=== PATIENT | male | born 1955 | race Caucasian/White ===

== ENCOUNTER 2020-01-26 08:41 | Outpatient (CLI) | payer OTHER, SELFPAY ==
[2020-01-26 09:09] LABS: Hemoglobin A1C 5.7 % (<5.7)
[2020-01-26 09:18] LABS: Blood Urea Nitrogen 22 mg/dL (9-20); Calcium 9.2 mg/dL (8.4-10.2); Carbon Dioxide 31 mmol/L (22-30); Chloride 106 mmol/L (98-107); Estimated Glomerular Filt Rate > 60; Glucose 101 mg/dL (75-110); Potassium 4.7 mmol/L (3.4-5.0); Sodium 140 mmol/L (137-145)
== END 2020-01-26 08:42 | disposition home or self-care (01) ==
PROVIDERS: PCP Family Medicine; Visit Provider Family Medicine
DX: R73.01 Impaired fasting glucose (principal)
CPT/HCPCS: 36415; 80048; 83036

== ENCOUNTER 2020-07-14 08:57 | Outpatient (CLI) | payer MEDICARE, SELFPAY ==
[2020-07-14 09:38] LABS: Add Urine Microscopic? NO; Appearance Urine Clear (Clear); Bilirubin Urine Negative (Negative); Blood Urine Negative (Negative); Color Urine Yellow (Yellow); Glucose Urine UA Negative (Negative); Ketones Urine Negative (Negative); Leukocyte Esterase Ur Negative LEU/UL (NEGATIVE); Nitrate Urine Negative (Negative); Protein Urine Negative (Negative); Urobilinogen Urine Negative mg/dL (<2.0)
[2020-07-14 09:46] LABS: Hemoglobin A1C 5.4 % (<5.7)
[2020-07-14 09:47] LABS: Alanine Aminotransferase 21 U/L (4-50); Albumin Level 4.1 g/dL (3.5-5.1); Alkaline Phosphatase 58 U/L (38-126); Anion Gap 5 mmol/L (8-16); Aspartate Amino Transferase 26 U/L (17-59); Bilirubin,Total 0.3 mg/dL (0.2-1.3); Blood Urea Nitrogen 30 mg/dL (9-20); Calcium 9.2 mg/dL (8.4-10.2); Carbon Dioxide 32 mmol/L (22-30); Chloride 106 mmol/L (98-107); Cholesterol 127 mg/dL (0-200); Estimated Glomerular Filt Rate > 60; Glucose 103 mg/dL (75-110); HDL Direct 43 mg/dL; Hemoglobin 15.4 g/dL (14.0-18.0); Mean Corpuscular HGB Conc 32.8 g/dl (32-36); Mean Corpuscular Hemoglobin 30.3 pg (26-34); Mean Corpuscular Volume 92.5 fl (80-100); Mean Platelet Volume 10.5 fl (7.4-10.4); Platelet Count Result 224 k/mm3 (150-375); Potassium 4.3 mmol/L (3.4-5.0); Red Blood Count 5.08 M/mm3 (4.6-6.20); Red Cell Distribution Width 13.8 % (11.5-14.5); Sodium 143 mmol/L (137-145); Triglycerides 50 mg/dL (<150)
[2020-07-14 09:59] LABS: LDL Cholesterol Direct 68 mg/dL
[2020-07-14 10:18] LABS: Prostate Specific Antigen 3.5 ng/mL (< OR = 4.0)
== END 2020-07-14 08:58 | disposition home or self-care (01) ==
PROVIDERS: PCP Family Medicine; Visit Provider Family Medicine
DX: D51.9 Vitamin B12 deficiency anemia, unspecified (principal); R73.01 Impaired fasting glucose; E78.2 Mixed hyperlipidemia; R35.1 Nocturia; I10 Essential (primary) hypertension
CPT/HCPCS: 36415; 80048; 80061; 80076; 81003; 82607; 83036; 84153; 84443; 85027

== ENCOUNTER 2020-08-15 13:07 | Outpatient (CLI) | payer MEDICARE, SELFPAY ==
--- NOTE | ~2020-08-15 | MMUS_ITS ---
EXAMINATION: MM diagnostic mammo unilat RT, US breast RT limited HISTORY: Palpable right breast mass. TECHNIQUE: Additional 3-D tomosynthesis images of the right breast were performed and synthetic 2-D i mages were generated. CAD analysis was submitted and interpreted. High resolution Limited right breas t ultrasound was performed. COMPARISON: None BREAST PARENCHYMAL COMPOSITION: Breast composed of scattered areas of fibroglandular density. FINDINGS: MAMMOGRAPHIC FINDINGS: The right breast contains a mass in the lower inner quadrant near the chest wall measuring approximat divine 3.4 cm greatest dimension. No architectural distortion or suspicious calcifications. ULTRASOUND: Targeted right breast ultrasound: At 4:00, 6 cm from the nipple in the area of palpable concern there is a circumscribed oval slightly hyperechoic mass measuring 3.2 x 2.6 x 1 cm with mixed posterior at tenuation. No significant internal vascularity. IMPRESSION: 1. Oval hyperechoic mass of the right breast in the area of palpable concern measuring up to 3.2 cm. 2. Ultrasound-guided right breast biopsy recommended. BI-RADS category 4, suspicious findings. Reviewed, dictated and finalized at location A. CORE OPERATOR IMPRESSION: 1. Oval hyperechoic mass of the right breast in the area of palpable concern me asuring up to 3.2 cm. 2. Ultrasound-guided right breast biopsy recommended. BI-RADS category 4, suspicious findings.
== END 2020-08-15 13:08 | disposition home or self-care (01) ==
PROVIDERS: PCP Family Medicine; Visit Provider Family Medicine
DX: N63.15 Unspecified lump in the right breast, overlapping quadrants (principal); R92.8 Other abnormal and inconclusive findings on diagnostic imaging of breast
CPT/HCPCS: 76642; 77065

== ENCOUNTER 2020-08-24 09:26 | Outpatient (CLI) | payer MEDICARE, SELFPAY ==
--- NOTE | ~2020-08-24 | US_ITS ---
EXAMINATION: US biopsy st neck thorax DATE: 08/24/2020 10:26 INDICATION: Right chest wall mass TECHNIQUE: The procedure including the risks and benefits was discussed with the patient. Risks discu ssed included bleeding and infection. The patient understood the risks and agreed to proceed. A timeo ut was performed. The skin overlying the right chest was prepped and draped in usual sterile fashion. Anesthetic was administered with 1% lidocaine subcutaneously. An 18 gauge core biopsy needle was t hen used to obtain three core biopsy specimens under continuous sonographic guidance. The entry site was cleaned and dressed. There were no immediate complications. FINDINGS: Ultrasound images demonstrate the needle in right chest wall mass. IMPRESSION: 1. Successful ultrasound-guided right chest wall mass biopsy. Reviewed, dictated and finalized at location A. MOTIVE PAINT TECHNICIAN
== END 2020-08-24 09:27 | disposition home or self-care (01) ==
PROVIDERS: PCP Family Medicine; Visit Provider Family Medicine
DX: N63.15 Unspecified lump in the right breast, overlapping quadrants (principal)
CPT/HCPCS: 20206; 76942; 88305

== ENCOUNTER 2021-07-24 08:41 | Outpatient (CLI) | payer MEDICARE, SELFPAY ==
[2021-07-24 09:23] LABS: Hematocrit 47.3 % (42.0-52.0); Hemoglobin 15.5 g/dL (14.0-18.0); Mean Corpuscular HGB Conc 32.8 g/dl (32-36); Mean Corpuscular Hemoglobin 30.8 pg (26-34); Mean Corpuscular Volume 93.8 fl (80-100); Mean Platelet Volume 9.8 fl (7.4-10.4); Platelet Count Result 222 k/mm3 (150-375); Red Blood Count 5.04 M/mm3 (4.6-6.20); Red Cell Distribution Width 14.6 % (11.5-14.5); White Blood Count 8.3 K/mm3 (4.5-10.0)
[2021-07-24 09:26] LABS: Add Urine Microscopic? NO; Appearance Urine Clear (Clear); Bilirubin Urine Negative (Negative); Blood Urine Negative (Negative); Color Urine Yellow (Yellow); Glucose Urine UA Negative (Negative); Ketones Urine Negative (Negative); Leukocyte Esterase Ur Negative LEU/UL (NEGATIVE); Nitrate Urine Negative (Negative); Protein Urine Negative (Negative); Specific Grav Ur 1.026 (1.001-1.035); Urobilinogen Urine Negative mg/dL (<2.0)
[2021-07-24 09:31] LABS: Hemoglobin A1C 5.5 % (<5.7)
[2021-07-24 09:33] LABS: Alanine Aminotransferase 24 U/L (4-50); Albumin Level 4.3 g/dL (3.5-5.1); Alkaline Phosphatase 60 U/L (38-126); Anion Gap 5 mmol/L (8-16); Aspartate Amino Transferase 28 U/L (17-59); Bilirubin,Total 0.3 mg/dL (0.2-1.3); Blood Urea Nitrogen 29 mg/dL (9-20); Calcium 9.6 mg/dL (8.4-10.2); Carbon Dioxide 29 mmol/L (22-30); Chloride 104 mmol/L (98-107); Cholesterol 151 mg/dL (0-200); Estimated Glomerular Filt Rate > 60; Glucose 110 mg/dL (65-110); HDL Direct 52 mg/dL; Potassium 4.2 mmol/L (3.4-5.0); Sodium 138 mmol/L (137-145); Triglycerides 62 mg/dL (<150)
[2021-07-24 09:46] LABS: LDL Cholesterol Direct 83 mg/dL
[2021-07-24 10:03] LABS: Prostate Specific Antigen 4.5 ng/mL (< OR = 4.0)
== END 2021-07-24 08:42 | disposition home or self-care (01) ==
PROVIDERS: PCP Family Medicine; Visit Provider Family Medicine
DX: E78.2 Mixed hyperlipidemia (principal); R35.1 Nocturia; R73.01 Impaired fasting glucose; D51.9 Vitamin B12 deficiency anemia, unspecified
CPT/HCPCS: 36415; 80048; 80061; 80076; 81003; 82607; 83036; 84153; 84443; 85027

== ENCOUNTER 2022-01-28 08:42 | Outpatient (CLI) | payer MEDICARE, SELFPAY ==
[2022-01-28 09:22] LABS: Anion Gap 3 mmol/L (8-16); Blood Urea Nitrogen 27 mg/dL (9-20); Calcium 8.8 mg/dL (8.4-10.2); Carbon Dioxide 29 mmol/L (22-30); Chloride 109 mmol/L (98-107); Estimated Glomerular Filt Rate > 60; Glucose 110 mg/dL (65-110); Potassium 4.4 mmol/L (3.4-5.0); Sodium 141 mmol/L (137-145)
[2022-01-30 16:39] LABS: PSA, Free 1.28 ng/mL; PSA, Total 4.3 ng/mL (<=4.0); Percent Free Prostate Spec Ag 30 % (>25)
== END 2022-01-28 08:43 | disposition home or self-care (01) ==
LOC: ANHLAB 08:47
PROVIDERS: PCP Family Medicine; Visit Provider Nurse Practitioner Family
DX: R97.20 Elevated prostate specific antigen [PSA] (principal); I10 Essential (primary) hypertension
CPT/HCPCS: 36415; 80048; 84153; 84154

== ENCOUNTER 2022-07-24 08:31 | Outpatient (CLI) | payer MEDICARE, SELFPAY ==
[2022-07-24 09:31] LABS: Hematocrit 48.2 % (42.0-52.0); Hemoglobin 15.5 g/dL (14.0-18.0); Mean Corpuscular HGB Conc 32.2 g/dl (32-36); Mean Corpuscular Hemoglobin 30.3 pg (26-34); Mean Corpuscular Volume 94.3 fl (80-100); Mean Platelet Volume 10.2 fl (7.4-10.4); Platelet Count Result 224 k/mm3 (150-375); Red Blood Count 5.11 M/mm3 (4.6-6.20); Red Cell Distribution Width 14.4 % (11.5-14.5); White Blood Count 7.2 K/mm3 (4.5-10.0)
[2022-07-24 09:42] LABS: Alanine Aminotransferase 25 U/L (6-50); Albumin Level 4.3 g/dL (3.5-5.1); Alkaline Phosphatase 69 U/L (38-126); Anion Gap 6 mmol/L (8-16); Aspartate Amino Transferase 29 U/L (17-59); Bilirubin,Total 0.4 mg/dL (0.2-1.3); Blood Urea Nitrogen 25 mg/dL (9-20); Carbon Dioxide 30 mmol/L (22-30); Chloride 107 mmol/L (98-107); Cholesterol 136 mg/dL (0-200); Estimated Glomerular Filt Rate > 60; Glucose 102 mg/dL (65-110); HDL Direct 47 mg/dL; Potassium 4.2 mmol/L (3.4-5.0); Sodium 143 mmol/L (137-145); Triglycerides 68 mg/dL (<150)
[2022-07-24 09:50] LABS: Appearance Urine Clear (Clear); Bilirubin Urine Negative (Negative); Blood Urine Negative (Negative); Color Urine Yellow (Yellow); Glucose Urine UA Negative (Negative); Ketones Urine Negative (Negative); Leukocyte Esterase Ur Negative LEU/UL (NEGATIVE); Nitrate Urine Negative (Negative); Protein Urine Negative (Negative); Urobilinogen Urine 0.2 mg/dL (<2.0)
[2022-07-24 09:51] LABS: Hemoglobin A1C 5.7 % (<5.7)
[2022-07-24 09:53] LABS: LDL Cholesterol Direct 65 mg/dL
[2022-07-24 09:54] LABS: Add Urine Microscopic? NO
== END 2022-07-24 08:32 | disposition home or self-care (01) ==
LOC: ANHLAB 08:43
PROVIDERS: PCP Family Medicine; Visit Provider Family Medicine
DX: R73.01 Impaired fasting glucose (principal); E78.2 Mixed hyperlipidemia; D51.9 Vitamin B12 deficiency anemia, unspecified
CPT/HCPCS: 36415; 80048; 80061; 80076; 81003; 82607; 83036; 84443; 85027

== ENCOUNTER 2023-01-15 09:18 | Outpatient (CLI) | payer MEDICARE, SELFPAY ==
--- NOTE | 2023-01-15 11:00 | NEURO_ITS ---
Impression: # Complains of nocturnal paresthesia and numbness in right hand. # Right moderate Carpal Tunnel Syndrome. # Mildly abnormal needle/EMG exam. Nerve Conduction Studies Anti Sensory Summary Table Stim Site NR Peak (ms) P-T Amp (?V) Site1 Site2 Delta-P (ms) Dist (cm) Shawn (m/s) Right Median Anti Sensory (2-3nd Digit) Wrist 5.5 7.5 Wrist 2-3nd Digit 5.5 14.0 25 Wrist 6.6 11.2 Wrist 2-3nd Digit 5.5 14.0 25 Right Radial Anti Sensory (Base 1st Digit) Wrist 2.7 8.7 Wrist Base 1st Digit 2.7 0.0 Right Ulnar Anti Sensory (5th Digit) Wrist 2.8 37.9 Wrist 5th Digit 2.8 14.0 50 Motor Summary Table Stim Site NR Onset (ms) O-P Amp (mV) Site1 Site2 Delta-0 (ms) Dist (cm) Shawn (m/s) Right Median Motor (Abd Poll Brev) Wrist 5.4 0.6 Elbow Wrist 5.9 28.0 47 Elbow 11.3 0.7 Right Ulnar Motor (Abd Dig Minimi) Wrist 2.3 4.7 A Elbow Wrist 6.6 31.0 47 A Elbow 8.9 3.2 B Elbow Wrist 4.5 23.0 51 B Elbow 6.8 3.0 F Wave Studies NR F-Lat (ms) L-R F-Lat (ms) Right Median (Mrkrs) (Abd Poll Brev) 29.53 Right Ulnar (Mrkrs) (Abd Dig Min) 30.22 EMG Side Muscle Nerve Root Ins Act Fibs Amp Dur Recrt Comment Right 1stDorInt Ulnar C8-T1 Nml Nml Nml Nml Nml Right Ext Indicis Radial (Post Int) C7-8 Nml Nml Nml Nml Nml Right Ext Digitorum Radial (Post Int) C7-8 Nml Nml Nml Nml Nml Right BrachioRad Radial C5-6 Nml Nml Nml Nml Nml Right PronatorTeres Median C6-7 Nml Nml Nml Nml Nml Right Abd Poll Brev Median C8-T1 Nml Nml Nml >12ms Reduced Right ABD Dig Min Ulnar C8-T1 Nml Nml Nml Nml Nml MTDD
== END 2023-01-15 09:19 | disposition home or self-care (01) ==
LOC: ANHNEURO 09:19
PROVIDERS: PCP Family Medicine; Visit Provider Nurse Practitioner Family
DX: G56.01 Carpal tunnel syndrome, right upper limb (principal)
CPT/HCPCS: 95886; 95909

== ENCOUNTER 2023-02-27 03:26 | Day surgery (SDC) | payer MEDICARE, SELFPAY ==
[2023-02-21 08:41] VITALS: BMI 25.0
--- NOTE | 2023-02-21 08:51 | PC.NURSE ---
Report to the Outpatient Waiting Room, entrance under the green pavilion located off [facility], at time _12:30PM on date ___02/27/23____. Planned Procedure Time: __1:30PM . LOCAL ANESTHESIA Time changes happen often and if your time is changed the preop area will call you the afternoon before. - You and your visitor will be asked to self-screen and do not enter if you have any COVID symptoms. - A mask is optional within the hospital at this time. Patients may have LIGHT BREAKFAST Take the following medications with a SIP of water the morning of surgery: MORNING MEDICATION DO NOT STOP ANY OF YOUR OTHER PRESCRIPTION MEDICATIONS PRIOR TO SURGERY ?EXCEPT THE FOLLOWING Medications to discontinue per physician NONE Date to take last dose Please no make-up, nail kyrgyz, hairspray, perfume, deodorant, or body powder the day of surgery. No jewelry (including any body piercings) or valuables the day of surgery, leave them at home. Please take a shower or bath the night before, or the morning of, surgery with an antibacterial soap. Wear comfortable, loose fitting clothing. Children are encouraged to wear pajamas. - Jewelry must be removed prior to entering the operating room. Rings and piercings that are not removed may be cut off. - The hospital will not accept responsibility for valuables. - Please leave all valuables, including medications, at home the day of surgery. If you are going home after surgery, a licensed inventory associate and driver OR YOU CAN DRIVE SELF HOME. care provider for at least 24 hours after your discharge time. Follow any additional instructions given to you from your surgeon. If you or anyone in your household have experienced Covid symptoms in the past week, please notify your surgeon or the nurse liaison at the phone number below for possible testing. Telephone instructions given to ___PATIENT and asked if any additional questions and then verbalized understanding. Patient advised to call surgeon office or pre surgery nurse liaison [phone] if any additional questions.
[2023-02-27 12:47] VITALS: BP 131/75; PULSE 57; RESP 14; TEMP 36.1; O2SAT 99
--- NOTE | 2023-02-27 12:59 | WPDHPUPDATE1 ---
History and Physical Update Update Date/Time: 02/27/23 12:59 History and Physical has been reviewed, including an updated exam of the patient. There are NO changes in the patient's condition. Risks, benefits, and alternatives have been discussed and questions answered. Patient agrees to proceed with procedure.
[2023-02-27 13:05] VITALS: BP 143/81; PULSE 57; RESP 16; O2SAT 95
[2023-02-27 13:10] VITALS: BP 124/62; PULSE 65; RESP 16; O2SAT 97
[2023-02-27 13:20] VITALS: BP 139/78; PULSE 70; RESP 16; O2SAT 96
[2023-02-27 13:34] VITALS: BP 124/66; PULSE 56; RESP 12; O2SAT 99
--- NOTE | 2023-02-27 13:35 | W.PM.PROC2 ---
Procedure Note - Detailed Date of Procedure 02/27/23 Pre-op Diagnosis Skin cyst of the back Post-op Diagnosis Same Procedure Performed Excision 2.5 cm inclusion cyst of the back, no margin. 7 cm layered closure Surgeon Boris Way MD Anesthesia Local (0.25% Marcaine with epinephrine) Indications Patient has enlarging flattened subcutaneous nodule in the left mid back. Clinically it is suspicious for a skin cyst. He is taken to surgery now for excision Findings Showed an epithelial inclusion cyst 2.5 cm in largest diameter. Description of Procedure Patient was checked in the preoperative holding area. The area of the cyst was marked on the skin. He was taken to surgery and placed in prone position. The area on his back where the cyst was located was prepped and draped. A 7 cm ellipse was drawn on the skin in a transverse orientation. Local was then infiltrated in the area of the proposed incision as well as all around the cyst itself. Incision was made and dissection was carried down through the skin on each end. We then carefully dissected back towards the cyst. The skin overlying the cyst was carefully dissected until the cyst it was found. We then dissected the skin and subcutaneous off the cyst without entering the cyst itself. We dissected the cyst completely free of any overlying skin and the surrounding subcutaneous tissue. It extended down to the muscular fascia of the back. It was completely excised without entering the cyst capsule. The cyst was measured. The length of the wound to close was measured. Sizes are as noted above. Additional local was infiltrated into the depths of the wound. Cautery was used for hemostasis. The deep layer of the wound was then closed with subcutaneous interrupted 3-0 Vicryl suture. Some subcuticular 4-0 Vicryl sutures were then placed. The skin was closed with a running 4-0 Monocryl skin suture. The wound was dressed with Exofin surgical adhesive. Patient was taken to outpatient surgery in good condition. Sponge and needle counts were correct x2. Estimated Blood Loss -5 Drains No Packing No Pathology Yes (Skin cyst of the back) Complications No immediate complications Condition Stable Disposition Same day [facility] Billing Surgery - Charge Forward: Surgery Billing (Excision 2.5 cm skin cyst of the back, no margins. 7 cm layered closure)
== END 2023-02-27 13:50 | disposition home or self-care (01) ==
PROVIDERS: PCP Family Medicine; Visit Provider Surgery
PROC: (CPT 11403; principal; 2023-02-27 13:00)
DX: L72.0 Epidermal cyst (principal)
CPT/HCPCS: 11403; 12032; 88304

== ENCOUNTER 2023-08-25 08:05 | Outpatient (CLI) | payer MEDICARE, SELFPAY ==
[2023-08-25 08:26] LABS: Basophils Percent Auto 0.5 % (0.2-1.2); Eosinophils Absolute Auto 0.3 K/mm3 (0-0.3); Eosinophils Percent Auto 3.3 % (0-4.4); Hematocrit 50.4 % (42.0-52.0); Hemoglobin 15.9 g/dL (14.0-18.0); Immature Granulocyte Absolute 0.03 K/mm3 (0.00-0.031); Immature Granulocyte Percent A 0.4 % (0-0.5); Lymphocytes Percent Auto 33.9 % (18.3-44.2); Mean Corpuscular HGB Conc 31.5 g/dl (32-36); Mean Corpuscular Volume 95.1 fl (80-100); Mean Platelet Volume 10.2 fl (7.4-10.4); Monocytes Percent Auto 12.2 % (2.6-8.5); Neutrophils Absolute Auto 4.1 K/mm3 (1.3-6.7); Neutrophils Percent Auto 49.7 % (45.5-73.1); Platelet Count Result 223 k/mm3 (150-375); Red Cell Distribution Width 14.3 % (11.5-14.5); White Blood Count 8.3 K/mm3 (4.5-10.0)
[2023-08-25 08:30] LABS: Add Urine Microscopic? NO; Appearance Urine Clear (Clear); Bilirubin Urine Negative (Negative); Blood Urine Negative (Negative); Color Urine Yellow (Yellow); Glucose Urine UA Negative (Negative); Ketones Urine Negative (Negative); Leukocyte Esterase Ur Negative LEU/UL (NEGATIVE); Nitrate Urine Negative (Negative); Protein Urine Negative (Negative); Urobilinogen Urine 0.2 mg/dL (<2.0); pH Urine 6.5 (5.0-9.0)
[2023-08-25 11:14] LABS: Alanine Aminotransferase 25 U/L (6-50); Alkaline Phosphatase 63 U/L (38-126); Anion Gap 5 mmol/L (8-16); Aspartate Amino Transferase 30 U/L (17-59); Bilirubin,Total 0.6 mg/dL (0.2-1.3); Blood Urea Nitrogen 23 mg/dL (9-20); Calcium 9.6 mg/dL (8.4-10.2); Carbon Dioxide 30 mmol/L (22-30); Chloride 107 mmol/L (98-107); Cholesterol 146 mg/dL (0-200); Estimated Glomerular Filt Rate > 60; Glucose 102 mg/dL (65-110); HDL Direct 42 mg/dL; Potassium 4.6 mmol/L (3.4-5.0); Sodium 142 mmol/L (137-145); Triglycerides 65 mg/dL (<150)
[2023-08-25 11:25] LABS: LDL Cholesterol Direct 81 mg/dL
[2023-08-25 11:48] LABS: Hemoglobin A1C 5.8 % (<5.7)
[2023-08-28 22:23] LABS: PSA, Free 1.33 ng/mL; Percent Free Prostate Spec Ag 27 % (>25)
== END 2023-08-25 08:06 | disposition home or self-care (01) ==
LOC: ANHLAB 08:07
PROVIDERS: PCP Family Medicine; Visit Provider Family Medicine
DX: E78.2 Mixed hyperlipidemia (principal); R73.01 Impaired fasting glucose; R97.20 Elevated prostate specific antigen [PSA]; D51.9 Vitamin B12 deficiency anemia, unspecified
CPT/HCPCS: 36415; 80048; 80061; 80076; 81003; 82607; 83036; 84153; 84154; 84443; 85025

== ENCOUNTER 2024-03-01 07:53 | Outpatient (CLI) | payer MEDICARE, SELFPAY ==
[2024-03-01 08:59] LABS: Alanine Aminotransferase 17 U/L (6-50); Albumin Level 3.9 g/dL (3.5-5.1); Alkaline Phosphatase 58 U/L (38-126); Anion Gap 5 mmol/L (4-12); Aspartate Amino Transferase 24 U/L (17-59); Bilirubin,Total 0.3 mg/dL (0.2-1.3); Blood Urea Nitrogen 30 mg/dL (9-20); Carbon Dioxide 31 mmol/L (22-30); Chloride 106 mmol/L (98-107); Cholesterol 122 mg/dL (0-200); Estimated Glomerular Filt Rate > 60; Glucose 94 mg/dL (65-110); HDL Direct 42 mg/dL; Potassium 4.1 mmol/L (3.4-5.0); Sodium 142 mmol/L (137-145); Triglycerides 108 mg/dL (<150)
[2024-03-01 09:10] LABS: LDL Cholesterol Direct 67 mg/dL
[2024-03-01 09:23] LABS: Hemoglobin A1C 5.9 % (<5.7)
[2024-03-03 15:08] LABS: PSA, Free 1.7 ng/mL; Percent Free Prostate Spec Ag 24 % (calc) (>25)
== END 2024-03-01 07:54 | disposition home or self-care (01) ==
LOC: ANHLAB 07:56
PROVIDERS: PCP Family Medicine; Visit Provider Family Medicine
DX: R73.01 Impaired fasting glucose (principal); R97.20 Elevated prostate specific antigen [PSA]; E78.2 Mixed hyperlipidemia
CPT/HCPCS: 36415; 80048; 80061; 80076; 83036; 84153; 84154

== ENCOUNTER → 2024-03-09 11:00 | Outpatient (CLI) | payer MEDICARE, SELFPAY ==
--- NOTE | ~2024-03-09 | XR_ITS ---
EXAM: XR lumbar spine min 4V DATE: 03/09/2024 11:19 HISTORY: M54.41-Lumbago with sciatica,right side,worsening,no injury . COMPARISON: None available. FINDINGS: 5 nonrib-bearing lumbar-type vertebral bodies. Pedicles intact. Trace retrolistheses at L2 -3 and L3-4. Minimal anterolisthesis at L4-5. Mild anterior wedge deformity of the thoracolumbar junc tion. Multilevel disc space narrowing and marginal osteophytosis, moderate at L2-3 and L3-4. Multilev el moderate facet arthropathy. Unilateral pars defects suspected on the left at L4-5. No fracture or dislocation. IMPRESSION: Multilevel grade 1 listheses. Presumably physiologic anterior wedging at the lumbar junct ion. Suspected unilateral left L4-5 pars defect. Multilevel degenerative disc disease and facet arthr opathy. Reviewed, dictated and finalized at location K. IMPRESSION: Multilevel grade 1 listheses. Presumably physiologic anterior wedgi ng at the lumbar junction. Suspected unilateral left L4-5 pars defect. Multilev el degenerative disc disease and facet arthropathy.
== END ==
PROVIDERS: PCP Family Medicine; Visit Provider Family Medicine
DX: M54.41 Lumbago with sciatica, right side (principal); G89.29 Other chronic pain; M51.36 Other intervertebral disc degeneration, lumbar region
CPT/HCPCS: 72110

== ENCOUNTER 2024-05-12 06:23 | Day surgery (SDC) | payer MEDICARE, SELFPAY ==
[2024-03-25 12:19] VITALS: BMI 27.5
[2024-04-26 10:12] VITALS: BMI 25.9
[2024-05-12 06:43] VITALS: BP 137/97; PULSE 84; RESP 16; TEMP 36.8; O2SAT 98
--- NOTE | 2024-05-12 07:08 | PM.HPGS ---
History of Present Illness History of Present Illness Consent: Risks, benefits, and alternatives have been discussed and questions answered. Patient agrees to proceed with procedure. Chief complaint: History of colon polyp Narrative: Oracio Santos is a 68 year old male presents for colonoscopy. Patient has a history of colonoscopy in 2016. A very small diminutive polyp was identified but no histology was able to be obtain. His father had multiple health problems but that his father did not have colon cancer to his knowledge. Dense today for follow-up colonoscopy. He reports his weight appetite and bowel movements are normal. Past history is significant for some issues with abnormal PSA and prostatic enlargement which are currently being evaluated. Review of Systems Review of Systems: All systems reviewed & are unremarkable except as noted in HPI and below PMFSH Past Medical History Medical History (Updated 03/31/24 @ 12:59 by Sonny Roberts MD) Abnormal fasting glucose Fasting glucose 110 on 01/28/2022. Glucose 102 with hemoglobin A1c 5.7 on 07/24/2022. Fasting glucose 96 with hemoglobin A1c 5.6 on 01/21/2023. Fasting glucose 102 with hemoglobin A1c 5.8 on 08/25/2023. glucose 94 with hemoglobin A1c 5.9 on 03/01/2024. Abscess and cellulitis of gluteal region At low risk for fall BMI 27.0-27.9,adult BMI 28.0-28.9,adult Breast lump on right side at 9 o'clock position Carpal tunnel syndrome Carpal tunnel syndrome of right wrist Carpal tunnel release 04/01/2023. EMG and nerve conduction study on 01/15/2023 reveals moderate carpal tunnel syndrome on the right. Chronic bilateral low back pain without sciatica Chronic low back pain with right-sided sciatica x-ray lumbar spine 03/09/2024 with multilevel degenerative changes. Colon cancer screening Colonoscopy 09/27/2005. Colonoscopy 10/16/2015 with benign polyps. Elevated PSA PSA normal at 3.5 on 07/14/2020, PSA elevated at 4.5 on 07/24/2021. PSA 4.3 on 01/28/2022. PSA 5.3 on 01/21/2023. PSA 5.0 with 27% free on 08/25/2023. PSA 7.0 with free PSA 24% on 03/01/2024. Encounter for prostate cancer screening Encounter for screening for malignant neoplasm of prostate Encounter for surgical aftercare following surgery on the skin and subcutaneous tissue Epidermal cyst Excised 02/27/2023 Epidermoid cyst of skin of chest Family history of cancer in father colonoscopy 09/27/2005. Benign polyps 10/16/2015. Insomnia Mass of chest wall, right Medial epicondylitis, right elbow Neoplasm of skin of cheek 0.6 cm pearly lesion left maxillary area of the face. nodular basal cell carcinoma excised 04/16/2023. Nocturia Overweight (BMI 25.0-29.9) Sebaceous cyst (~2021) 3 cm sebaceous cyst midline upper back . Excised 02/27/2023. Subcutaneous mass of back Vitamin B12 deficiency anemia level normal at 609 with hemoglobin 15.5 on 07/24/2021. B12 level normal at 584 with hemoglobin 15.5 on 07/24/2022. Level normal at 934 with hemoglobin 15.9 on 08/25/2023. Surgical History Surgical History H/O excision of epidermal inclusion cyst 02/27/2023 - Excision 2.5 cm inclusion cyst of the back, no margin. 7 cm layered closure H/O excision of mass 09/11/20 chest mass History of benign breast biopsy History of colonoscopy Lipoma of shoulder removal 2014 Family History Family History Sibling Hypertension Father Carcinoma of colon Hypertension Family history of cardiovascular disease, Onset Age: 84 Mother Family history of osteoarthritis Patient's mother is , Onset Age: 81 Family history of cardiovascular disease Social History Social History Smoking status: Never smoker Alcohol intake: current Drinks per week: 6 Alcohol use details: beer Substance use: never Substance use type:
[2024-05-12] MEDS: LACTATED RINGERS 1,000 ML 150 ML IV CONT (07:17)
--- NOTE | 2024-05-12 07:50 | WPDANESEPPF ---
Anes - Initial Pre Proc Eval Procedure: Operation Date: 05/12/24 08:00 Proposed Procedures p Diagnostic Colonoscopy - Teofilo Pino MD Date/Time: 05/12/24 07:50 Surgeon: Teofilo Pino MD Pre Op Diagnosis: History of colon polyp Patient Data Age: 68 Gender: M Height: 1.78 m Weight: 80.15 kg Last Vital Signs Temp 36.8 C 05/12/24 06:43 Pulse 84 05/12/24 06:43 Resp 16 05/12/24 06:43 BP 137/97 H 05/12/24 06:43 Pulse Ox 98 05/12/24 06:43 O2 Del Method Room Air 05/12/24 06:43 Allergies Allergy/AdvReac Type Severity Reaction Status Date / Time No Known Allergies Allergy Verified 05/12/24 06:40 Home Medications Medication Instructions Recorded Confirmed Type Van Vleet's wort 300 mg capsule 300 mg PO DAILY 02/21/23 05/12/24 History glucosamine sulfate 500 mg tablet 500 mg PO DAILY 02/21/23 05/12/24 History (Glucosamine) esomeprazole magnesium 40 mg 40 mg PO DAILY #90 caps 08/25/23 05/12/24 Rx capsule,delayed release metoprolol succinate 100 mg 100 mg PO .COMPLEX #135 tabs 08/25/23 05/12/24 Rx tablet,extended release 24 hr simvastatin 40 mg tablet 40 mg PO DAILY #90 tabs 02/17/24 05/12/24 Rx hydrocodone 5 mg-acetaminophen 325 1 tablet PO Q6-8H PRN pain #28 tabs 03/09/24 05/12/24 Rx mg tablet lidocaine 4 % topical patch 1 patch topical DAILY PRN pain 03/09/24 05/12/24 History (Salonpas (lidocaine)) amitriptyline 10 mg tablet 10 mg PO QHS #90 tabs 03/22/24 05/12/24 Rx ibuprofen 800 mg tablet 800 mg PO TID PRN pain #270 tabs 05/10/24 05/12/24 Rx Patient hx anesthesia problems: none Family hx anesthesia problems: none Results Review: All pre-operative results and documents have been reviewed as part of the pre-operative evaluation. [facility] Past Medical History Medical History Abnormal fasting glucose Fasting glucose 110 on 01/28/2022. Glucose 102 with hemoglobin A1c 5.7 on 07/24/2022. Fasting glucose 96 with hemoglobin A1c 5.6 on 01/21/2023. Fasting glucose 102 with hemoglobin A1c 5.8 on 08/25/2023. glucose 94 with hemoglobin A1c 5.9 on 03/01/2024. Abscess and cellulitis of gluteal region At low risk for fall BMI 27.0-27.9,adult BMI 28.0-28.9,adult Breast lump on right side at 9 o'clock position Carpal tunnel syndrome Carpal tunnel syndrome of right wrist Carpal tunnel release 04/01/2023. EMG and nerve conduction study on 01/15/2023 reveals moderate carpal tunnel syndrome on the right. Chronic bilateral low back pain without sciatica Chronic low back pain with right-sided sciatica x-ray lumbar spine 03/09/2024 with multilevel degenerative changes. Colon cancer screening Colonoscopy 09/27/2005. Colonoscopy 10/16/2015 with benign polyps. Elevated PSA PSA normal at 3.5 on 07/14/2020, PSA elevated at 4.5 on 07/24/2021. PSA 4.3 on 01/28/2022. PSA 5.3 on 01/21/2023. PSA 5.0 with 27% free on 08/25/2023. PSA 7.0 with free PSA 24% on 03/01/2024. Encounter for prostate cancer screening Encounter for screening for malignant neoplasm of prostate Encounter for surgical aftercare following surgery on the skin and subcutaneous tissue Epidermal cyst Excised 02/27/2023 Epidermoid cyst of skin of chest Family history of cancer in father colonoscopy 09/27/2005. Benign polyps 10/16/2015. Insomnia Mass of chest wall, right Medial epicondylitis, right elbow Neoplasm of skin of cheek 0.6 cm pearly lesion left maxillary area of the face. nodular basal cell carcinoma excised 04/16/2023. Nocturia Overweight (BMI 25.0-29.9) Sebaceous cyst (~2021) 3 cm sebaceous cyst midline upper back . Excised 02/27/2023. Subcutaneous mass of back Vitamin B12 deficiency anemia level normal at 609 with hemoglobin 15.5 on 07/24/2021. B12 level normal at 584 with hemoglobin 15.5 on 07/24/2022. Level normal at 934 with hemoglobin 15.9 on 08/25/2023. Surgical History Surgical History (Reviewed 05/12/24 @ 07:50 by Alex Troy
[2024-05-12 08:20] VITALS: BP 117/80; PULSE 67; RESP 16; O2SAT 94
[2024-05-12 08:30] VITALS: BP 117/80; PULSE 75; RESP 16; O2SAT 97
[2024-05-12 08:40] VITALS: BP 125/94; PULSE 69; RESP 15; O2SAT 97
--- NOTE | 2024-05-12 08:58 | WPDANESPN ---
Anes - Prog Note Post-Op Date/Time: 05/12/24 08:58 Cardiovascular status: normal Respiratory status: normal Airway patency: baseline Mental status: baseline Post-Op hydration status: normal Vital Signs: Last Vital Signs Temp 36.8 C 05/12/24 06:43 Pulse 69 05/12/24 08:40 Resp 15 05/12/24 08:40 BP 125/94 H 05/12/24 08:40 Pulse Ox 97 05/12/24 08:40 O2 Del Method Room Air 05/12/24 08:40 Pain Score (VAS): 0 I/O: Intake & Output 05/11/24 05/12/24 05/12/24 23:59 07:59 15:59 Intake Total 500 Balance 500 Patient Feedback: Patient satisfied with anesthetic care.
== END 2024-05-12 08:57 | disposition home or self-care (01) ==
PROVIDERS: PCP Family Medicine; Visit Provider Internal Medicine Gastroenterology
PROC: 0DJD8ZZ Inspection of Lower Intestinal Tract, Via Natural or Artificial Opening Endoscopic (ICD-10-PCS; CPT 45378; principal; 2024-05-12 08:00)
DX: Z12.11 Encounter for screening for malignant neoplasm of colon (principal); D12.2 Benign neoplasm of ascending colon; K57.30 Diverticulosis of large intestine without perforation or abscess without bleeding; K64.8 Other hemorrhoids; Z86.010 Personal history of colon polyps
CPT/HCPCS: 45385

== ENCOUNTER 2024-05-12 07:08 | Outpatient (NON) | payer MEDICARE, SELFPAY | END 2024-05-12 07:09 | disposition home or self-care (01) | LOC: ANHLAB 05-13 07:09 | PROVIDERS: PCP Family Medicine; Visit Provider Internal Medicine Gastroenterology | DX: Z12.11 Encounter for screening for malignant neoplasm of colon (principal); D12.2 Benign neoplasm of ascending colon | CPT/HCPCS: 88305 ==

== ENCOUNTER 2024-06-28 12:33 | Outpatient (CLI) | payer MEDICARE, SELFPAY ==
--- NOTE | ~2024-06-28 | PE_ITS ---
EXAMINATION: PET_PETPSMAST_PT DATE: 06/28/2024 15:45 INDICATION: Prostate cancer. TECHNIQUE: 5.016 mCi of Ga-68 gozetotide was administered intravenously. Low dose computed tomography (CT) images were acquired from the base of the brain to the proximal thighs for attenuation correcti on and anatomic localization. Automated exposure control was employed. Dose-length product (DLP) was 1132 mGy-cm. Positron emission tomography (PET) images were acquired in the same distribution. COMPARISON: None FINDINGS: Head/neck: There is no lymphadenopathy. Chest: There is a pneumatocele in right middle lobe. No pleural effusion. The heart size is normal. N o pericardial effusion. There are coronary artery calcifications. There is a 6 mm nodule in left thyr oid lobe, likely not clinically significant. There are no pathologically enlarged lymph nodes. There is a small sliding hiatal hernia. Abdomen/pelvis/proximal thighs: The liver, gallbladder, spleen, pancreas, adrenal glands, and right k idney are normal. There is a 2.5 cm cyst in left kidney. The prostate is mildly enlarged with focal i ncreased activity on the left with maximum SUV of 6.2. There are bilateral inguinal hernias containin g fat. There is diverticulosis of the colon without evidence of diverticulitis. There are no patholog ically enlarged lymph nodes. There is no free intraperitoneal fluid. There is no osseous metastatic d isease. IMPRESSION: 1. Mildly enlarged prostate with focal increased activity on the left, consistent with primary malign karen. No evidence of metastatic disease. Reviewed, dictated and finalized at location A. IFIED PARALEGAL IMPRESSION: 1. Mildly enlarged prostate with focal increased activity on the left, consiste nt with primary malignancy. No evidence of metastatic disease.
== END 2024-06-28 12:34 | disposition home or self-care (01) ==
PROVIDERS: PCP Family Medicine; Visit Provider Radiology Radiation Oncology
DX: C61 Malignant neoplasm of prostate (principal); Z51.0 Encounter for antineoplastic radiation therapy; N40.0 Benign prostatic hyperplasia without lower urinary tract symptoms
CPT/HCPCS: 78815; A9596

== ENCOUNTER 2024-10-19 08:54 | Outpatient (CLI) | payer MEDICARE, SELFPAY ==
[2024-10-19 09:37] LABS: Basophils Absolute Auto 0.1 K/mm3 (0.0-0.1); Eosinophils Absolute Auto 0.4 K/mm3 (0-0.3); Eosinophils Percent Auto 7.6 % (0-4.4); Hematocrit 44.5 % (42.0-52.0); Hemoglobin 14.7 g/dL (14.0-18.0); Immature Granulocyte Absolute 0.01 K/mm3 (0.00-0.031); Immature Granulocyte Percent A 0.2 % (0-0.5); Lymphocytes Absolute Auto 1.04 K/mm3 (0.9-3.2); Lymphocytes Percent Auto 20.8 % (18.3-44.2); Mean Corpuscular Hemoglobin 31.1 pg (26-34); Mean Corpuscular Volume 94.1 fl (80-100); Mean Platelet Volume 9.7 fl (7.4-10.4); Monocytes Absolute Auto 0.8 K/mm3 (0.1-0.6); Monocytes Percent Auto 15.6 % (2.6-8.5); Neutrophils Absolute Auto 2.7 K/mm3 (1.3-6.7); Neutrophils Percent Auto 54.8 % (45.5-73.1); Platelet Count Result 217 k/mm3 (150-375); Red Blood Count 4.73 M/mm3 (4.6-6.20); Red Cell Distribution Width 14.7 % (11.5-14.5)
[2024-10-19 09:38] LABS: Add Urine Microscopic? YES; Appearance Urine Cloudy (Clear); Bacteria Urine None Seen /hpf; Bilirubin Urine Negative (Negative); Blood Urine Negative (Negative); Color Urine Yellow (Yellow); Glucose Urine UA Negative (Negative); Ketones Urine Negative (Negative); Leukocyte Esterase Ur Negative LEU/UL (Negative); Nitrate Urine Negative (Negative); Non Pathogenic Casts 0-2; Protein Urine Negative (Negative); RBC Urine 0-2 /hpf (0-2); Specific Grav Ur 1.015 (1.001-1.035); Squamous Epithelial Cell Urine None Seen /hpf (Few); Urobilinogen Urine 0.2 mg/dL (<2.0); WBC Urine 0-5 /hpf (0-3)
[2024-10-19 10:07] LABS: Creatinine Urine 59.7 mg/dL
[2024-10-19 10:20] LABS: Microalbumin Urine Random < 6.0 mg/L (0-16.7)
[2024-10-19 10:21] LABS: MALB Creatinine Ratio < 10.1 mg/g (0-30)
[2024-10-19 13:01] LABS: Hemoglobin A1C 5.9 % (<5.7)
[2024-10-19 14:58] LABS: Alanine Aminotransferase 32 U/L (6-50); Alkaline Phosphatase 64 U/L (38-126); Anion Gap 6 mmol/L (4-12); Aspartate Amino Transferase 33 U/L (17-59); Bilirubin,Total 0.5 mg/dL (0.2-1.3); Blood Urea Nitrogen 25 mg/dL (9-20); Calcium 9.8 mg/dL (8.4-10.2); Carbon Dioxide 30 mmol/L (22-30); Chloride 105 mmol/L (98-107); Cholesterol 154 mg/dL (0-200); Estimated Glomerular Filt Rate > 60; Glucose 108 mg/dL (65-110); HDL Direct 49 mg/dL; Potassium 5.5 mmol/L (3.4-5.0); Sodium 141 mmol/L (137-145); Triglycerides 69 mg/dL (<150)
[2024-10-19 15:18] LABS: LDL Cholesterol Direct 75 mg/dL
[2024-10-19 16:06] LABS: Vitamin B12 > 1000.0 pg/mL (239-931)
== END 2024-10-19 08:55 | disposition home or self-care (01) ==
PROVIDERS: PCP Family Medicine; Visit Provider Family Medicine
DX: E78.2 Mixed hyperlipidemia (principal); R73.01 Impaired fasting glucose; D51.9 Vitamin B12 deficiency anemia, unspecified
CPT/HCPCS: 36415; 80048; 80061; 80076; 81001; 82043; 82607; 83036; 85025

== ENCOUNTER 2024-12-03 09:13 | Outpatient (CLI) | payer MEDICARE, SELFPAY ==
[2024-12-03 10:02] LABS: Anion Gap 4 mmol/L (4-12); Blood Urea Nitrogen 30 mg/dL (9-20); Calcium 9.4 mg/dL (8.4-10.2); Carbon Dioxide 29 mmol/L (22-30); Chloride 107 mmol/L (98-107); Estimated Glomerular Filt Rate > 60; Glucose 103 mg/dL (65-110); Sodium 140 mmol/L (137-145)
== END 2024-12-03 09:14 | disposition home or self-care (01) ==
PROVIDERS: PCP Family Medicine; Visit Provider Family Medicine
DX: E87.5 Hyperkalemia (principal)
CPT/HCPCS: 36415; 80048

== ENCOUNTER 2025-01-07 09:54 | Outpatient (CLI) | payer MEDICARE, SELFPAY ==
--- OUTSIDE RECORDS SUMMARY | 2025-01-07 09:59 | XMS_ITS | Continuity of Care Document ---
Author Organization [facility] Address [address] [place] [address] Phone Care Team Providers Care Plug Assembler Name Role Phone Doron Fatima MD Unavailable Unavailable Advance Directives Directive Yes / No Effective Date File Name No Information Encounters Encounter Description Practice Location Reason(s) For Visit Diagnoses Date Provider Providers Copied on Encounter [facility], [address], [place], [place], [id number], [place] tel:[phone] [facility] No Information Kushal Sal. [address] [place] [address], [id number], [place]. tel:[phone] Family History Family Member Type Diagnosis Age At Onset No Information Payers Payer name Insurance type Covered republican ID Authoriza tion(s) No Information Social History Type Description Quantity Date Captured Comments Sex Male Smoking Status No Information Chief Complaint And Reason For Visit No Information Reason For Referral Reason For Referral No Information History Of Present Illness Encounter Date Complaint History Of Prese nt Illness No Information Functional Status Date Functional Assessmen t No Information Instructions Date Instruction Additional Infor mation No Information Assessments Type Assessment Date No Information Patient Care Teams Name Effective Dates (start - stop) Status Members No Information
[2025-01-07 10:36] LABS: Uric Acid 3.6 mg/dL (3.5-8.5)
[2025-01-07 10:42] LABS: Rheumatoid Factor < 12.0 IU/ML (<12)
[2025-01-09 01:59] LABS: CRP, High Sensitivity 0.6 mg/L
[2025-01-11 14:34] LABS: ANA Cascade Screen NEGATIVE (NEGATIVE)
== END 2025-01-07 09:55 | disposition home or self-care (01) ==
PROVIDERS: PCP Family Medicine; Visit Provider Nurse Practitioner Family
DX: M25.50 Pain in unspecified joint (principal); I10 Essential (primary) hypertension
CPT/HCPCS: 36415; 84550; 86038; 86141; 86225; 86235; 86364; 86430